=== PATIENT | male | born 1970 | race Caucasian/White ===

== ENCOUNTER 2018-09-03 14:52 | Emergency (ER) | payer BC ==
[~2018-09-03] VITALS: Ht 167.6 cm; Wt 93.0 kg
[2018-09-03 14:52] VITALS: BP_SYST 140
--- NOTE | 2018-09-03 14:52 | NUR ---
Patient to ER bed 5 to gown for evaluation. Side rails up. Assumed care.
--- NOTE | 2018-09-03 15:00 | NUR ---
Patient arrived via POV, AAOx4, ambulatory with steady gait. Patient c/c of rash to chest and bilateral upper extremities. Patient states no changes in laundry soap, soap for hair, and changes in foods. Patient states itching is bothersome and not really painful. Patient states no relief from cold compresses, but from cold showers temporary relief.
--- NOTE | 2018-09-03 15:02 | NUR ---
ANTHONY Rizvi at bedside examining patient.
[2018-09-03] MEDS ORDERED: FAMOTIDINE 20 MG TABLET PO ONE (15:30)
[2018-09-03] MEDS ORDERED: methylPREDNISolone SOD SUCC/PF 62.5 MG/ML VIAL IM ONE (15:30)
[2018-09-03 17:00] VITALS: BP_SYST 132
--- NOTE | 2018-09-03 17:00 | NUR ---
Patient given written and verbal discharge instructions and verbalizes understanding. ER MD discussed with patient the results and treatment provided. Patient in stable condition. ID arm band removed. Rx of Prednisone and Benadryl given. Patient educated on pain management and to follow up with PMD. Pain Scale 2/10. Opportunity for questions provided and answered. Medication side effect fact sheet provided.
== END 2018-09-03 17:00 | disposition home or self-care (01) ==
LOC: SED 14:52
DX: R21 Rash and other nonspecific skin eruption (principal)
CPT/HCPCS: 96372; 99283; J2930